=== PATIENT | male | born 1995 | race American Indian/Alaskan Native ===

== ENCOUNTER 2019-09-24 05:11 | Emergency (ER) | payer SELFPAY ==
--- NOTE | 2019-09-24 08:03 | Emergency Department Report ---
- General Chief complaint: Skin/Abscess/Foreign Body Stated complaint: FEVER/INSECT BITE Time Seen by Provider: 09/24/19 07:26 Source: patient Mode of arrival: Ambulatory Limitations: No Limitations - History of Present Illness Initial comments: This is a 24-year-old male that is not ill-appearing, healthy looking young male who presents the ED complaining of a small raised area of his skin on his left shoulder back region which he noticed from an insect bite 2 weeks ago while he was in [place]. Patient states he cannot felt rise about a week ago. Patient denies any redness patient denies any pain to the area. Patient does state that he is felt a little c intermittent chills since then. Patient denies any pain to the area of the insect bite. MD complaint: insect bite/sting, lesion -: week(s) (2) Tetanus Up to Date: yes Location: back Severity: mild Severity scale (0 -10): 0 Associated symptoms: fever, chills - Related Data Previous Rx's Medication Instructions Recorded Last Taken Type cephALEXin [Keflex] 500 mg PO Q12HR #10 cap 09/24/19 Unknown Rx Allergies Allergy/AdvReac Type Severity Reaction Status Date / Time No Known Allergies Allergy Unverified 09/24/19 05:22 Abscess Boil HPI - HPI Chief Complaint: Skin/Abscess/Foreign Body Stated Complaint: FEVER/INSECT BITE Time Seen by Provider: 09/24/19 07:26 Home Medications: Previous Rx's Medication Instructions Recorded Last Taken Type cephALEXin [Keflex] 500 mg PO Q12HR #10 cap 09/24/19 Unknown Rx Allergies/Adverse Reactions: Allergies Allergy/AdvReac Type Severity Reaction Status Date / Time No Known Allergies Allergy Unverified 09/24/19 05:22 ED Review of Systems ROS: Stated complaint: FEVER/INSECT BITE Other details as noted in HPI Comment: All other systems reviewed and negative ED Past Medical Hx - Past Medical History Previous Medical History?: No - Surgical History Past Surgical History?: Yes Additional Surgical History: keloid removed as a child - Social History Smoking Status: Never Smoker Substance Use Type: None - Medications Home Medications: Home Medications Medication Instructions Recorded Confirmed Last Taken Type cephALEXin [Keflex] 500 mg PO Q12HR #10 cap 09/24/19 Unknown Rx ED Physical Exam - General Limitations: No Limitations General appearance: alert, in no apparent distress - Head Head exam: Present: atraumatic, normocephalic - Eye Eye exam: Present: normal appearance - ENT ENT exam: Present: mucous membranes moist - Neck Neck exam: Present: normal inspection - Respiratory Respiratory exam: Present: normal lung sounds bilaterally. Absent: respiratory distress - Cardiovascular Cardiovascular Exam: Present: regular rate, normal rhythm. Absent: systolic murmur, diastolic murmur, rubs, gallop - GI/Abdominal GI/Abdominal exam: Present: soft, normal bowel sounds - Rectal Rectal exam: Present: deferred - Extremities Exam Extremities exam: Present: normal inspection - Back Exam Back exam: Present: normal inspection - Neurological Exam Neurological exam: Present: alert, oriented X3 - Psychiatric Psychiatric exam: Present: normal affect, normal mood - Skin Skin exam: Present: warm, dry, intact, normal color, other (Raised 3 cm lesion to the left shoulder back scapular region, nontender to palpation, no fluctuance, no redness, feels like a lipoma). Absent: rash, cyanosis, erythema, abrasion ED Course Vital Signs 09/24/19 05:22 Temperature 99.2 F Pulse Rate 103 H Respiratory 18 Rate Blood Pressure 130/84 O2 Sat by Pulse 94 Oximetry ED Medical Decision Making - Medical Decision Making 24-year-old male who presents with a 3 cm raised lesion which he noticed after an insect bite in [place]. Wrist lesion upon my examination appears to be a lipoma. I discussed this with the patient. I discussed the patient may apply some heat to the area. Vital signs are normal patient is in no acute distress. Patient is speaking in clear sentences. I discussed with patient is some Motrin for any kind of pain or if he feels like he is getting a fever. Discussed follow-up with primary care physician. Patient is in no respiratory distress at this time and will be discharged home with instructions Critical care attestation.: If time is entered above; I have spent that time in minutes in the direct care of this critically ill patient, excluding procedure time. ED Disposition Clinical Impression: Lipoma, Insect bite Disposition: DC-01 TO HOME OR SELFCARE Is pt being admited?: No Does the pt Need Aspirin: No Condition: Stable Instructions: Lipoma (ED), Insect Bite or Sting (ED) Additional Instructions: Make sure to follow up with the primary care physician as discussed. Take all your medications as you've been prescribed. If you have any worsening symptoms or develop new symptoms please return to ED immediately. Prescriptions: cephALEXin [Keflex] 500 mg PO Q12HR #10 cap Referrals: PRIMARY CARE, [Primary Care Provider] - 3-5 Days [facility] [Outside] - 3-5 Days [facility] [Outside] - 3-5 Days Forms: Accompanied Note, Work/School Release Form(ED) Time of Disposition: 08:06
[2019-09-24 08:30] VITALS: BP 129/80
== END 2019-09-24 08:27 | disposition home or self-care (01) ==
LOC: ED 05:11
DX: S40.262A Insect bite (nonvenomous) of left shoulder, initial encounter (principal); D17.22 Benign lipomatous neoplasm of skin and subcutaneous tissue of left arm; R50.9 Fever, unspecified; Y93.89 Activity, other specified; Y92.89 Other specified places as the place of occurrence of the external cause; Y99.8 Other external cause status
CPT/HCPCS: 99282